=== PATIENT | male | born 1945 | race Caucasian/White ===

== ENCOUNTER → 2019-03-14 | Outpatient (CLI) | payer MEDICARE ==
[2019-03-14 12:04] LABS: African American GFR (CKD) >90 (>60 ml/min/1.73 sqM); Blood Urea Nitrogen 20 mg/dL (9-20)
--- NOTE | 2019-03-14 16:11 | US ---
EXAMINATION TYPE: US kidneys/renal and bladder DATE OF EXAM: 03/14/2019 COMPARISON: NONE CLINICAL HISTORY: 74-year-old male R31.9 Hematuria, left flank pain TECHNIQUE: Multiple sonographic images of the kidneys and bladder are obtained. FINDINGS: EXAM MEASUREMENTS: Right Kidney: 11.6 x 5.6 x 4.9 cm Left Kidney: 11.3 x 5.6 x 5.4 cm Right Kidney: parapelvic cyst measuring 0.9 x 0.8 x 1.0cm Left Kidney: multiple cysts largest measuring 2.3 x 2.5 x 2.2cm, multiple echogenic foci that may rep resent calcified arteries vs small stones Bladder: Prominent prostate gland measuring approximately 5.5 cm. Mild circumferential bladder wall t hickening probably chronic bladder wall hypertrophy. Bilateral Jets seen: yes IMPRESSION: 1. No hydronephrosis. 2. Prostatomegaly (approximately 5.5 cm). 3. Scattered calcifications in both kidneys could represent arterial calcifications versus small nono bstructive calculi.
== END | disposition home or self-care (01) ==
LOC: RADUSWWP 10:29
PROVIDERS: ATTEND Urology
DX: N40.0 Benign prostatic hyperplasia without lower urinary tract symptoms (principal); N28.89 Other specified disorders of kidney and ureter; R31.29 Other microscopic hematuria
CPT/HCPCS: 36415; 76770; 82565; 84520

== ENCOUNTER → 2020-04-30 | Outpatient (CLI) | payer MEDICARE ==
--- NOTE | 2020-04-30 08:45 | CT ---
EXAMINATION TYPE: CT abdomen pelvis wo con DATE OF EXAM: 04/30/2020 HISTORY: Hematuria CT DLP: 742 mGycm. Automated Exposure Control for Dose Reduction was Utilized. TECHNIQUE: CT scan of the abdomen and pelvis is performed without oral or IV contrast. COMPARISON: Renal ultrasound March 14, 2019 FINDINGS: Within the limitations of a non-contrast study, the following observations are made. LUNG BASES: Posterior bibasilar linear scarring and/or atelectasis LIVER/GB: No significant abnormality is appreciated. PANCREAS: No significant abnormality is seen. SPLEEN: No significant abnormality is seen. ADRENALS: No significant abnormality is seen. KIDNEYS: Single 2 to 3 mm nonobstructing calculus right kidney mid to lower pole level coronal image 53. No left-sided nephrolithiasis. Cortical thinning is present bilaterally. Subcentimeter low dense lesion right kidney upper midpole level posterolaterally coronal image 67 likely corresponds to ultra sound lesion. There are more numerous thin-walled cysts scattered throughout the left kidney includin g 3.0 cm partially exophytic lesion posteriorly upper pole level. Some central smaller parapelvic cys t in the left kidney are present. No hydronephrosis is present bilaterally. No intraluminal calculi i n bladder. BOWEL: Scattered diffuse colonic diverticulosis without CT evidence for acute diverticulitis. Normal- appearing appendix from the cecum. No suspicious bowel dilatation. GENITAL ORGANS: Markedly enlarged prostate gland consistent with BPH bulging on bladder base. LYMPH NODES: No greater than 1cm abdominal or pelvic lymph nodes are appreciated. OSSEOUS STRUCTURES: Early moderate multilevel spurring in the visualized spine moderate disc space na rrowing and vacuum disc phenomenon L4-L5 and L5-S1 levels. Posterior spur disc and facet arthropathy causes spinal canal stenosis at L4-L5 level. Moderate axial joint space loss both hips. OTHER: No significant additional abnormality is seen. IMPRESSION: Markedly enlarged prostate consistent with BPH. Small hyperdense focus suspicious for 2 t o 3 mm nonobstructing calculus right kidney otherwise source of hematuria not identified. Evidence of chronic medical renal disease.
== END | disposition home or self-care (01) ==
LOC: RADCTMAIN 07:33
PROVIDERS: ATTEND Urology
DX: N40.0 Benign prostatic hyperplasia without lower urinary tract symptoms (principal); N20.0 Calculus of kidney; R31.1 Benign essential microscopic hematuria; Z88.1 Allergy status to other antibiotic agents
CPT/HCPCS: 74176